=== PATIENT | male | born 1980 | race Caucasian/White ===

== ENCOUNTER → 2016-11-21 | Outpatient (CLI) | payer OTHER | LOC: RAD 10:44 | DX: R05 Cough (principal) | CPT/HCPCS: 71020 ==

== ENCOUNTER → 2016-12-16 | Outpatient (CLI) | payer OTHER | LOC: HEART 5 08:27 | DX: R07.9 Chest pain, unspecified (principal); I25.9 Chronic ischemic heart disease, unspecified; I51.9 Heart disease, unspecified | CPT/HCPCS: 78451; 78452; 93306; A9502 ==